=== PATIENT | female | born 1990 | race Caucasian/White ===

== ENCOUNTER 2017-01-23 19:32 | Emergency (ER) | payer OTHER ==
[2017-01-23 19:39] VITALS: O2SAT 97
[2017-01-23] MEDS ORDERED: ACETAMINOPHEN 500 MG TAB PO ONE (20:20)
--- NOTE | 2017-01-23 20:22 | EDPHY ---
H & P Time Seen by Provider: 01/23/17 20:04 HPI/ROS: CHIEF COMPLAINT: Flashes of light in the left eye HISTORY OF PRESENT ILLNESS: This is a 26-year-old female who has a history of amblyopia with decreased vision in her right eye, presents reporting around noon today she began to have flashes of white light in the lateral field of her left eye. Denies floaters. Denies spotty vision. Denies sensation of a curtain. Initially the flashes were current approximately every hour, now they are occurring approximately every 20 minutes. She has a mild headache. No history of migraines. There is a family history of migraines as well as a family history of retinal detachment and vitreous hemorrhage. Patient's primary agricultural adviser is Dr. Carrillo. She is concerned regarding possibility of vision loss in her left eye, as it is her good eye. Denies fevers, cold symptoms, chest pain, arrhythmias, shortness of breath, head trauma. Denies conjunctival discharge. Reports that the left eye feels irritated. REVIEW OF SYSTEMS: Aside from elements discussed in the HPI, a comprehensive 10-point review of systems was reviewed and is negative. PAST MEDICAL HISTORY: Amblyopia SOCIAL HISTORY: Nonsmoker. Visual Acuity: noted from Nurse's notes. Focused examination of the left eye. Eyelid: No edema, erythema or swelling. Pupils: 5 mm Round and reactive to light EOMI Conjunctivae: No injection, no discharge. Anterior chamber: Normal, no hyphema or hypopyon Direct ophthalmological exam: Sharp discs bilaterally, no retinal abnormalities noted Skin: No proptosis, no periorbital erythema or swelling, no vesicles. Lungs are clear to auscultation. Heart is regular rate and rhythm. Patient is alert, conversant, no distress. Smoking Status: Never smoked Constitutional: Initial Vital Signs Temperature (C) 36.9 C 01/23/17 19:36 Heart Rate 86 01/23/17 19:36 Respiratory Rate 18 01/23/17 19:36 Blood Pressure 123/77 H 01/23/17 19:36 O2 Sat (%) 97 01/23/17 19:36 O2 Delivery Mode Room Air Allergies/Adverse Reactions: aspirin Allergy (Verified 01/23/17 19:35) Home Medications: Medication Instructions Recorded Ondansetron Odt [Zofran Odt] 4 mg PO Q4PRN PRN #6 tab 03/26/10 MDM/Departure - MDM Medications Given: Discontinued Medications Acetaminophen (Tylenol) 1,000 mg PO EDNOW ONE Stop: 01/23/17 20:21 Last Admin: 01/23/17 20:23 Dose: 1,000 mg ED Course/Re-evaluation: Patient's course was discussed with Dr. Odom, on-call for Dr. Carrillo. He will see the patient tomorrow in his office. Advised not to do any vigorous physical activity this evening. Patient was also given Tylenol for headache. Differential diagnosis considered included retinal detachment, vitreous tear, retinal tear, ocular migraine, TIA, stroke. - Depart Disposition: Home, Routine, Self-Care Clinical Impression: Vision problems Condition: Good Instructions: Blurred Vision (ED), Visual Floaters (ED) Additional Instructions: You should be contacted by Dr. Odom in the morning. If you do not hear from him, his cell phone is [phone]. He will see you tomorrow for further evaluation. Okay to take Tylenol if you developed headache tonight. Please avoid significant physical activity tonight. Referrals: Kaitlin Corona MD [Primary Care Provider] - As per Instructions Noah Odom MD [Medical Doctor] - As per Instructions
[2017-01-23 21:22] VITALS: BP 113/65; PULSE 63; RESP 16; TEMP 98.1
== END 2017-01-23 21:22 | disposition home or self-care (01) ==
DX: H57.8 Other specified disorders of eye and adnexa (principal)

== ENCOUNTER → 2018-12-14 | Outpatient (CLI) | payer BC | LOC: BMCIMAGING 16:22 | PROVIDERS: ATTEND Internal Medicine Rheumatology | DX: M54.2 Cervicalgia (principal) ==